=== PATIENT | female | born 1950 | race African-American/Black ===

== ENCOUNTER 2020-07-01 11:47 | Emergency (ER) | payer OTHER ==
[~2020-07-01] VITALS: Ht 162.6 cm; Wt 74.8 kg
[2020-07-01 12:10] VITALS: BP 187/98
[2020-07-01 15:08] VITALS: BP 175/91
--- NOTE | 2020-07-01 15:08 | NUR ---
Patient discharged with v/s stable. Written and verbal after care instructions given and explained. Patient alert, oriented and verbalized understanding of instructions. Ambulatory with steady gait. All questions addressed prior to discharge. ID band removed. Patient advised to follow up with PMD. Rx of Naprosyn and Tylenol given. Patient educated on indication of medication including possible reaction and side effects. Opportunity to ask questions provided and answered.
== END 2020-07-01 15:08 | disposition home or self-care (01) ==
LOC: MED 11:47
DX: M13.862 Other specified arthritis, left knee (principal); Z88.8 Allergy status to other drugs, medicaments and biological substances
CPT/HCPCS: 73562; 99283

== ENCOUNTER 2022-11-22 09:40 | Emergency (ER) | payer OTHER ==
[~2022-11-22] VITALS: Ht 167.6 cm; Wt 77.1 kg
[2022-11-22 10:24] VITALS: BP 257/115
[2022-11-22] MEDS ORDERED: KETOROLAC 60 MG/2 ML VIAL IM ONE (10:50)
[2022-11-22] MEDS ORDERED: ACET-8905 PO (10:55)
[2022-11-22] MEDS ORDERED: IBUP-2213 PO (10:55)
== END 2022-11-22 11:32 | disposition home or self-care (01) ==
LOC: MED 09:40
DX: M25.562 Pain in left knee (principal)
CPT/HCPCS: 96372; 99283; J1885